=== PATIENT | male | born 1990 | race Caucasian/White ===

== ENCOUNTER 2023-05-27 04:58 | Emergency (ER) | payer SELFPAY ==
[2023-05-27] MEDS ORDERED: Ibuprofen 600 MG Tab PO ONE (05:29)
== END 2023-05-27 05:42 | disposition home or self-care (01) ==
LOC: MW.ED 04:58
DX: M67.431 Ganglion, right wrist (principal); F32.A Depression, unspecified; F41.9 Anxiety disorder, unspecified
CPT/HCPCS: 99282; A9270; 99283

== ENCOUNTER 2023-11-25 22:59 | Emergency (ER) | payer BC ==
[2023-11-25] MEDS: Sodium Chloride 0.9% 1,000 ML IV ONE (23:07)
[2023-11-25] MEDS: Famotidine 20 MG/2 ML SDV IVPUSH ONE (23:08)
[2023-11-25] MEDS: diphenhydrAMINE 50 MG/ML SDV IVPUSH ONE (23:09)
== END 2023-11-26 02:50 | disposition home or self-care (01) ==
LOC: MW.ED 22:59
DX: T78.40XA Allergy, unspecified, initial encounter (principal); Z79.899 Other long term (current) drug therapy
CPT/HCPCS: 96374; 96375; 99284; J1200; J3490; J7030